=== PATIENT | male | born 1975 | race Caucasian/White ===

== ENCOUNTER 2021-06-12 01:48 | Outpatient (CLI) | payer BC, SELFPAY ==
[2021-06-12 11:11] LABS: Calculated LDL 115 mg/dL (<100); Cholesterol 187 mg/dL (<200); HDL Cholesterol 61 mg/dL (40-60); Triglyceride 58 mg/dL (<150)
[2021-06-12 17:55] LABS: PSA, Screening 2.2 ng/mL (0.0-2.5)
== END 2021-06-12 01:49 | disposition home or self-care (01) ==
LOC: LBO 01:49
PROVIDERS: PCP Family Medicine; Visit Provider Emergency Medicine
DX: Z00.00 Encounter for general adult medical examination without abnormal findings (principal); Z13.6 Encounter for screening for cardiovascular disorders; Z12.5 Encounter for screening for malignant neoplasm of prostate
CPT/HCPCS: 36415; 80061; 84153

== ENCOUNTER 2023-03-30 09:18 | Outpatient (CLI) | payer OTHER, SELFPAY ==
[2023-03-30 12:56] LABS: HCT 46.2 % (40.0-50.0); HGB 15.2 g/dL (13.5-17.5); MCH 30.5 pg (27.0-33.0); MCHC 32.9 % (32.0-36.0); MCV 93 fL (80-95); MPV 10.9 fL (8.0-11.0); Platelet Count 254 10^3/uL (130-400); RBC 4.99 10^6/uL (4.36-5.78); RDW 12.1 % (11.8-14.1); RDW-SD 41.4 fL; WBC 6.97 10^3/uL (4.4-10.8)
[2023-03-30 13:14] LABS: ALT 28 U/L (16-63); AST 24 U/L (15-37); Alkaline Phosphatase 68 U/L (46-116); Anion Gap 9.1 mmol/L (3-11); BUN 18 mg/dL (7-18); Bilirubin, Total 0.9 mg/dL (0.2-1.0); CO2 26.9 mmol/L (21.0-32.0); Calcium 9.7 mg/dL (8.5-10.1); Chloride 103 mmol/L (98-107); Estimated GFR 92.84 (mL/min/1.73m2); Glucose 102 mg/dL (74-106); Potassium 3.9 mmol/L (3.5-5.1); Sodium 139 mmol/L (136-145); Total Protein 7.9 g/dL (6.4-8.2)
== END 2023-03-30 09:19 | disposition home or self-care (01) ==
LOC: LOS 09:18
PROVIDERS: PCP Family Medicine; Referring Provider Family Medicine; Visit Provider Family Medicine
DX: R42 Dizziness and giddiness (principal); Z00.00 Encounter for general adult medical examination without abnormal findings
CPT/HCPCS: 36415; 80053; 85027

== ENCOUNTER → 2023-12-14 20:22 | Emergency (ER) | payer OTHER, SELFPAY ==
[2023-12-14 20:25] VITALS: BP 129/93; PULSE 58; RESP 16; TEMP 36.7; O2SAT 99
--- NOTE | 2023-12-14 20:56 | ED.GENADUL_ITS ---
Discharge Plan Disposition Patient Disposition: Home Condition: Stable Discharge Details Clinical Impression: Melena Primary Care Provider: Vilma Urbano ED Provider: Avril Lomax Home Meds and New Rx's Prescriptions: New pantoprazole 40 mg tablet,delayed release (DR/EC) 40 mg PO DAILY Qty: 30 0RF Discharge Instructions Instructions: Bloody Stools, Adult ED Additional Instructions: * Your blood work today is reassuring. No signs of acute blood loss. * You may be having intermittent melena, please start Protonix medication daily as this will help heal injury in your GI tract * please follow-up with your PCP to schedule an outpatient Upper endoscopy * Return to the emergency department if you develop significant bleeding, vomiting coffee-ground appearing emesis or any other concerns. HPI General Date/Time Provider Initiated Documentation: 12/14/23 20:33 . Limitations to Documentation: no limitations . Information obtained by: patient . HPI Narrative: 48-year-old M without significant past medical history presents for evaluation of dark black stool. He reports that this is been ongoing for last 1 to 2 weeks. He is worried because it started after he went water skiing. He denies any abdominal pain he denies any vomiting. He does report a history of esophageal ulcer years ago. Reports occasional alcohol use. Denies significant NSAID use. Reports he has not use NSAIDs in over 2 weeks. no pain with bowel movements or bright red blood. Related Data Home Medications ?Medication ?Instructions ?Recorded ?Confirmed pantoprazole 40 mg tablet,delayed 40 mg PO DAILY #30 tabs 12/14/23 release Previous Rx's ?Medication ?Instructions ?Recorded pantoprazole 40 mg tablet,delayed 40 mg PO DAILY #30 tabs 12/14/23 release Allergies Allergy/AdvReac Type Severity Reaction Status Date / Time No Known Allergies Allergy Verified 06/24/23 08:23 General Stated Complaint: GI Bleed YULISA: 3 Exam Narrative Exam Narrative: Review of Systems: All systems reviewed & are unremarkable except as noted in HPI and below Well-developed, no acute distress NCAT PERRL, normal conjunctiva no palor RRR no murmur Unlabored respiratory effort CTAB Nondistended abdomen soft non tender REctal exam performed wtih monotypist, no external hemorhoids, brown stool, occult negative Extremities w/o deformity, no cyanosis, no edema No rashes or lesions. no focal neurologic deficits Appropriate mood and affect Course Vital Signs Vital signs: Vital Signs Temperature 36.7 C 12/14/23 20:25 Pulse 58 L 12/14/23 20:25 Respiratory Rate 16 12/14/23 20:25 Blood Pressure 129/93 H 12/14/23 20:25 Pulse Oximetry 99 12/14/23 20:25 Temperature 36.7 C 12/14/23 20:25 Temperature Source Temporal Artery Scan 12/14/23 20:25 Pulse 58 L 12/14/23 20:25 Respiratory Rate 16 12/14/23 20:25 Blood Pressure 129/93 H 12/14/23 20:25 Blood Pressure Position Sitting 12/14/23 20:25 Pulse Oximetry 99 12/14/23 20:25 Oxygen Delivery Method Room Air 12/14/23 20:25 Oxygen Flow Rate 0 12/14/23 20:25 Pain Level 0 12/14/23 20:25 Medical Decision Making Emergent evaluation of concern for GI bleeding. The patient is hemodynamically stable. His abdominal exam is benign and his rectal exam does not demonstrate melena. He does have a history of esophageal ulceration, but no significant risk factors for gastritis for PUD. Lab work was obtained. His hemoglobin is stable, electrolytes are unremarkable. No significant elevation in BUN and no derangement in liver function. Lipase is negative. At this time I will start the patient on a PPI. Recommend continuing this until he follows up with his PCP for reevaluation and outpatient EGD. Strict return precautions advised and signs of significant bleeding were discussed the patient. Medical Records Medical records reviewed: Yes I reviewed the patient's medical records. Lab Data Lab results reviewed: Yes I reviewed the patient's lab results. Quality:SDOH Health Related Social Needs: No Data to Display PFSH All Active Problems Melena (Acute) Depression (Chronic) had vertigo with sertraline. Anxiety (Chronic) Medical History Hx of syncope (~2010) H/O: facial fracture (~2010) with surgery - orbit, nose, maxilla - after syncope Family history of prostate cancer COVID-19 uncomplicated. Family History Mother , AGE 70 Ovarian cancer Father Diabetes Sister Depression Brother Depression Son No problems noted. Daughter No problems noted. Social History Smoking/Tobacco Use Status: Never Second Hand Exposure: No Smoking risk assessment performed?: Yes Alcohol Intake: current Alcohol Intake frequency: a few times a month Alcohol type: hard liquor Drug use: Never Substance use type: does not use Adopted: No Caregiver/Support person: No Household members: children Housing: house Number of Children: 2 Communication Needs: None Education Level: college Details: BS in mathematics Do you need help understanding health information?: Never current occupation: Working for [employer]. Pets and animals: Yes Pets and animals: cat(s), dog(s) and fish Sexually active: Yes Do you think of yourself as: straight/heterosexual Current gender identity: male What is your relationship status?: How often do you talk on the phone with friends or family?: three or more times per week How often do you get together with friends or relatives?: twice per week How often do you attend adventism or pentecostal services?: decline to answer Do you belong to any clubs or organized social groups?: yes Panel score (0-1 are the most socially isolated patients): 2 What type of physical activity do you participate in: bicycling, weight lifting and other Details: Volleyball, hiking, skiing Duration: 30-45 minutes/day Frequency: 3-4 times per week Dyana/Uatsdin: Non zoroastrianism Special dyana needs: No Seatbelt use: always Helmet use: Yes Helmet use: always Drive intox or ride w/intox truck driver rubbish collector: No Firearms in home: Yes Firearms unloaded and locked: Yes Do you feel safe at home: Yes Do you feel safe in your relationship?: Yes Victim of physical abuse: No Victim of emotional abuse: No Victim of sexual abuse: No Would you like helpful sources: No Additional Social history: Enjoys volleyball, disc golf.
[2023-12-14 21:01] LABS: Abs Immature Grans 0.01 10^3/uL (0.0-0.06); Absolute Basophil Count 0.06 10^3/uL (0.0-0.2); Absolute Eosinophil Count 0.13 10^3/uL (0.0-0.7); Absolute Lymphocyte Count 2.16 10^3/uL (1.2-3.4); Absolute Monocyte Count 0.57 10^3/uL (0.1-0.8); Absolute Neutrophil Count 4.33 10^3/uL (1.2-6.7); Basophils % 0.8 %; Eosinophils % 1.8 %; HCT 44.7 % (40.0-50.0); HGB 15.1 g/dL (13.5-17.5); Immature Grans % 0.1 %; Lymphocytes % 29.8 %; MCH 31.4 pg (27.0-33.0); MCHC 33.8 % (32.0-36.0); MCV 93 fL (80-95); MPV 10.4 fL (8.0-11.0); Monocytes % 7.9 %; Neutrophils % 59.6 %; Platelet Count 250 10^3/uL (130-400); RBC 4.81 10^6/uL (4.36-5.78); RDW 11.4 % (11.8-14.1); RDW-SD 39.3 fL; WBC 7.26 10^3/uL (4.4-10.8)
[2023-12-14 21:09] VITALS: PULSE 57; RESP 18; O2SAT 96
[2023-12-14 21:10] VITALS: PULSE 58; RESP 17; O2SAT 97
[2023-12-14 21:16] VITALS: BP 120/85; PULSE 55; PULSE 58; RESP 17; O2SAT 97
[2023-12-14 21:16] LABS: Lipase 62 U/L (16-77)
[2023-12-14 21:19] LABS: ALT 29 U/L (16-63); AST 21 U/L (15-37); Albumin 3.9 g/dL (3.4-5.0); Alkaline Phosphatase 63 U/L (46-116); Anion Gap 6.8 mmol/L (3-11); BUN 17 mg/dL (7-18); Bilirubin, Total 0.52 mg/dL (0.2-1.0); CO2 28.2 mmol/L (21.0-32.0); CREATININE 0.9 mg/dL (0.70-1.30); Calcium 8.9 mg/dL (8.5-10.1); Chloride 105 mmol/L (98-107); Glucose 99 mg/dL (74-106); Sodium 140 mmol/L (136-145); Total Protein 7.7 g/dL (6.4-8.2)
[2023-12-14 21:20] VITALS: PULSE 56; RESP 15; O2SAT 97
[2023-12-14] MEDS: Pantoprazole 40 MG VIAL IVP (21:29)
[2023-12-14 21:30] VITALS: PULSE 57; RESP 16; O2SAT 96
== END | disposition home or self-care (01) ==
LOC: ER 21:27 → RED 21:45
PROVIDERS: Emergency Provider Emergency Medicine; PCP Family Medicine
DX: R10.9 Unspecified abdominal pain (principal); K92.1 Melena
CPT/HCPCS: 80053; 83690; 86850; 86900; 86901; 96374; 99284; 85025; 99283; J2470

== ENCOUNTER 2024-05-14 12:20 | Outpatient (CLI) | payer OTHER, SELFPAY ==
[2024-05-14 11:54] LABS: Abs Immature Grans 0.02 10^3/uL (0.0-0.06); Absolute Basophil Count 0.03 10^3/uL (0.0-0.2); Absolute Eosinophil Count 0.08 10^3/uL (0.0-0.7); Absolute Lymphocyte Count 1.37 10^3/uL (1.2-3.4); Absolute Neutrophil Count 4.18 10^3/uL (1.2-6.7); Basophils % 0.5 %; Eosinophils % 1.3 %; HCT 42.2 % (40.0-50.0); HGB 14.1 g/dL (13.5-17.5); Immature Grans % 0.3 %; Lymphocytes % 22.2 %; MCH 31.3 pg (27.0-33.0); MCHC 33.4 % (32.0-36.0); MCV 94 fL (80-95); MPV 10.5 fL (8.0-11.0); Monocytes % 8.1 %; Neutrophils % 67.6 %; Platelet Count 235 10^3/uL (130-400); RBC 4.51 10^6/uL (4.36-5.78); RDW 11.8 % (11.8-14.1); RDW-SD 40.8 fL; WBC 6.18 10^3/uL (4.4-10.8)
[2024-05-14 12:07] LABS: PTT Activated 25.4 sec (23.6-32.8)
[2024-05-14 12:33] LABS: TSH (W/Ref FT4) 1.51 uIU/mL (0.36-3.74)
== END 2024-05-14 12:21 | disposition home or self-care (01) ==
LOC: LBO 12:21
PROVIDERS: PCP Family Medicine; Visit Provider Nurse Practitioner Family
DX: R23.3 Spontaneous ecchymoses (principal)
CPT/HCPCS: 36415; 84443; 85025; 85730

== ENCOUNTER 2024-06-18 02:02 | Outpatient (CLI) | payer OTHER, SELFPAY ==
--- NOTE | 2024-06-18 | DI.MRI_ITS ---
Exam(s) MR BRAIN WO/W EXAM: MR BRAIN WO/W CLINICAL HISTORY: RI AUTH# [id number] ANISCORIA, R/O LESION TECHNIQUE: Multiplanar multisequence MRI of the brain was performed. CONTRAST MATERIAL: IV Contrast: 14 mL of Dotarem contrast administered. COMPARISON: No exams were available for comparison FINDINGS: VENTRICLES AND EXTRA AXIAL SPACES: Normal in size and morphology for the patient's age. HEMORRHAGE: None. CEREBRAL PARENCHYMA: No focus of restricted diffusion to suggest acute infarct. No space-occupying le ravindra identified. There are multiple foci of hyperintense signal on the T2 and FLAIR images in the whi te matter. Several of these lesions are in the periventricular tissues and are oriented prep and in to the ventricles. They show no enhancement following contrast administration. There is hyperintens e signal seen adjacent to the right occipital horn. No intraparenchymal mass is identified. There i s a question of mild hyperintense signal seen in the left optic nerve. MIDLINE SHIFT: None. BRAINSTEM/CEREBELLUM: Normal. CALVARIUM: Normal. ENHANCEMENT: No suspicious enhancement identified. VISUALIZED PARANASAL SINUSES/MASTOIDS: Clear. [facility]: Normal flow void. PITUITARY GLAND: Unremarkable. OTHER FINDINGS: IMPRESSION: 1. Multiple hyperintense white matter lesions seen on the FLAIR and T2 weighted images in the periven tricular region. They show no enhancement. The findings are suspicious for demyelinating process dickson ch as multiple sclerosis. 2. No intracranial mass or or enhancing lesion. 3. Question of hyperintense T2 signal seen in the left optic nerve. MRI of the optic nerves without and with contrast should be considered for further evaluation. Unexpected findings DATA REPOSITORY:
[2024-06-18] MEDS: Gadoterate meglumine 20 ML SYRINGE 14 ML IVP (10:34)
[2024-06-18] MEDS: Normal Saline Flush 10 ML SYR IVP (10:35)
== END 2024-06-18 02:22 ==
PROVIDERS: PCP Family Medicine; Visit Provider Optometrist
DX: H57.02 Anisocoria (principal)
CPT/HCPCS: 70553

== ENCOUNTER 2024-07-24 02:32 | Outpatient (CLI) | payer OTHER, SELFPAY ==
--- NOTE | 2024-07-24 09:45 | DI.MRI_ITS ---
Exam(s) MR ORBIT FACIAL NECK WO/W EXAM: MR ORBIT FACIAL NECK WO/W CLINICAL HISTORY: optic neuritis due to demyelinating disease,pupil TECHNIQUE: Multiplanar multisequence MRI was performed with both pre and post contrast infused seque nces. Contrast administered was IV Dotarem 14 mL.. COMPARISON: MR MR BRAIN WO/W from 06/18/2024 FINDINGS: ORBITS: No evidence of dysconjugate gaze.. The anterior and posterior chambers of the globes are int act. The retrobulbar fat is unremarkable. Extraocular muscles are unremarkable. OPTIC NERVES: The intracranial and extracranial portions of the optic nerves are within normal limits . Optic chiasm is within normal limits. No abnormal signal nor enhancement within nor surrounding th e optic nerves. No MRI evidence of optic neuritis. SOFT TISSUES: Lacrimal glands appear unremarkable. Remaining soft tissues are unremarkable. PITUITARY GLAND: Pituitary gland and infundibulum appear unremarkable. There are no masses in the dickson prasellar cistern. Cavernous sinuses appear unremarkable VASCULAR: Expected regional flow voids are evident. No aneurysms seen. No vascular malformation. OTHER FINDINGS: Partially visualized paranasal sinuses are clear. IMPRESSION: Unremarkable MRI of the orbits. There is no evidence of optic neuritis. DATA REPOSITORY:
[2024-07-24] MEDS: Gadoterate meglumine 20 ML SYRINGE IVP (10:34)
[2024-07-24] MEDS: Normal Saline Flush 10 ML SYR IVP (10:35)
--- NOTE | 2024-07-24 10:45 | DI.MRI_ITS ---
Exam(s) MR THORACIC SPINE WO/W EXAM: MR THORACIC SPINE WO/W CLINICAL HISTORY: Abnormal MRI,deymelinating disease,g37.9 TECHNIQUE: Multiplanar multisequence MRI of the thoracic spine was performed without intravenous con trast. COMPARISON: No exams were available for comparison FINDINGS: OSSEOUS: There are no acute appearing thoracic vertebral fractures. There benign-appearing intraosseo us hemangiomas in the central aspect of the T11 vertebral body and posterior right side of the T9 noa tebral body. There are no ominous osseous lesions in the thoracic vertebrae. THORACIC SPINAL CORD: There is no abnormal signal in the thoracic spinal cord and no evidence of foca l cord atrophy nor focal cord swelling. There is no abnormal enhancement within the thoracic spinal cord nor within the thecal sac. There is slight prominence of the central canal from lower T4 level to T7 level. There is, however, no prominent syringomyelia. The diameter of the central canal is le ss than 1 millimeter at these levels. There is no evidence of mass at the conus medullaris. The pos ition of the conus medullaris is at normal T12-L1 level. SIGNIFICANT INDIVIDUAL DISC LEVEL FINDINGS: All the disc spaces exhibit normal height and signal. There is no evidence of disc herniation or dante tral spinal canal stenosis nor significant foraminal stenosis. PARASPINAL TISSUES: No significant masses nor fluid collections evident. IMPRESSION: 1. No evidence of significant signal abnormality in the thoracic spinal cord. 2. There is mild prominence of the central canal within the spinal cord from T4-T7 level. The diamet er of the central canal at these levels is less than 1 mm. There is no prominent syringomyelia. 3. No evidence of disc herniation, central canal stenosis nor foraminal stenosis in the thoracic spin al column. 4. No fractures of the vertebral bodies. Benign intraosseous hemangiomas are noted in the T9 and T1 1 vertebral bodies. There are no ominous osseous lesions. DATA REPOSITORY:
--- NOTE | 2024-07-24 11:15 | DI.MRI_ITS ---
Exam(s) MR CERVICAL SPINE WO/W EXAM: MR CERVICAL SPINE WO/W CLINICAL HISTORY: Abnormal MRI,demyelinating disease,G37.9 TECHNIQUE: Multiplanar multisequence MRI of the cervical spine was performed without intravenous con trast. COMPARISON: No exams were available for comparison FINDINGS: CERVICOMEDULLARY JUNCTION: Intact with no evidence of cerebellar tonsillar ectopia. No obvious abnor mality of the odontoid process. No evidence of Chiari 1 malformation. OSSEOUS:There are no cervical fractures evident. No significant osseous lesions in the cervical vert ebrae. INDIVIDUAL DISC LEVELS: All the disc spaces exhibit normal height and signal. There is no evidence of disc herniation or dante tral canal stenosis nor significant foraminal stenosis. CERVICAL SPINAL CORD: Is no evidence of focal cord atrophy nor focal cord swelling. However, there is abnormal signal in the left side of the cervical spinal cord extending from approx imately the level of the base of the odontoid-C2 down to lower C3 level. This does not exhibit enhan cement following contrast injection. IMPRESSION: 1. There is lung truly orientated signal abnormality in left side of the cervical spinal cord extendi ng from upper C2 down to mid-lower C3 level. There is no enhancement in the cord at this level and n o evidence of cord expansion nor atrophy. Findings are consistent with probable demyelinating disease. 2. No evidence of cervical disc disease. 3. No evidence of spinal canal stenosis. DATA REPOSITORY:
== END 2024-07-24 02:52 ==
LOC: DI 02:32
PROVIDERS: PCP Family Medicine; Visit Provider Family Medicine
DX: G36.0 Neuromyelitis optica [Devic] (principal); H57.02 Anisocoria
CPT/HCPCS: 70543; 72156; 72157

== ENCOUNTER 2024-08-31 00:49 | Outpatient (CLI) | payer OTHER, SELFPAY ==
[2024-09-03 11:37] LABS: Varicella IgG Antibody Positive (See Note)
[2024-09-05 00:48] LABS: Vitamin D 25 Total 62 ng/mL (30-100)
[2024-09-06 03:35] LABS: Index Value 2.11; JCV Antibody POSITIVE
[2024-09-06 10:41] LABS: Kappa Free Light Chain 2.17 mg/dL (0.33-1.94)
[2024-09-06 11:26] LABS: Measles IgG Antibody Positive (See Note)
[2024-09-06 13:28] LABS: Albumin 58.2 % (55.8-66.1); Albumin g/dL 4.1 g/dL (3.6-5.2); Total Protein 7.1 g/dL (6.3-8.2)
[2024-09-06 15:02] LABS: ANA Interpretation Negative (Negative)
[2024-09-07 14:40] LABS: Angiotensin Converting Enzyme 24 U/L (16 - 85)
== END 2024-08-31 00:50 | disposition home or self-care (01) ==
PROVIDERS: PCP Family Medicine; Visit Provider Psychiatry & Neurology Neurology
DX: R90.82 White matter disease, unspecified (principal); G35 Multiple sclerosis
CPT/HCPCS: 36415; 82164; 82306; 86711; 86787; 83883; 84165; 86038; 86765

== ENCOUNTER 2024-09-05 15:56 | Outpatient (CLI) | payer OTHER, SELFPAY ==
[2024-09-05 17:02] LABS: Folate 13.2 ng/mL (8.6-20.0)
[2024-09-07 10:56] LABS: IgA 368 mg/dL (85-499); IgG 1134 mg/dL (610-1616); IgM 95 mg/dL (35-242)
[2024-09-07 14:43] LABS: CD19 13 % (6-24); CD20 13 % (6-24)
[2024-09-07 14:54] LABS: TB Interpretation Negative (Negative)
[2024-09-14 12:29] LABS: MOG FACS Negative (Negative); NMO/AQP4 FACS Negative (Negative)
== END 2024-09-05 15:57 | disposition home or self-care (01) ==
LOC: LBO 15:56
PROVIDERS: PCP Family Medicine; Visit Provider Psychiatry & Neurology Neurology
DX: R90.82 White matter disease, unspecified (principal); G35 Multiple sclerosis
CPT/HCPCS: 36415; 82784; 86255; 88184; 88185; 82746; 86480